=== PATIENT | male | born 1965 | race Caucasian/White ===

== ENCOUNTER 2017-06-04 10:49 | Emergency (ER) | payer MEDICAID ==
[~2017-06-04] VITALS: Ht 180.3 cm; Wt 113.0 kg
[2017-06-04 11:22] LABS: BASOPHILS # (AUTO) 0.1 X10'3 (0-0.2); BASOPHILS % (AUTO) 0.7 % (0-1); EOSINOPHILS # (AUTO) 0.2 X10'3 (0-0.9); EOSINOPHILS % (AUTO) 2.2 % (0-6); HEMATOCRIT 43.9 % (42.0-52.0); HEMOGLOBIN 15.6 g/dl (14.0-17.9); LYMPHOCYTES # (AUTO) 2.4 X10'3 (1.1-4.8); LYMPHOCYTES % (AUTO) 26.5 % (21-51); MEAN CORPUSCULAR HEMOGLOBIN 31.7 PG (27.0-31.0); MEAN CORPUSCULAR HGB CONC 35.4 % (33.0-36.5); MEAN CORPUSCULAR VOLUME 89.6 FL (78-98); MONOCYTES # (AUTO) 0.5 X10'3 (0-0.9); MONOCYTES % (AUTO) 5.3 % (2-12); NEUTROPHILS # (AUTO) 5.9 X10'3 (1.8-7.7); NEUTROPHILS % (AUTO) 65.3 % (42-75); PLATELET COUNT 320 X10'3 (140-440); RED CELL DISTRIBUTION WIDTH 14.3 % (11.5-14.5)
[2017-06-04 11:37] LABS: ANION GAP 10 (8-16); BLOOD UREA NITROGEN 14 MG/DL (7-18); BUN/CREATININE RATIO 12.6 (5.4-32.0); CHLORIDE 105 MMOL/L (99-107); CREATININE 1.11 MG/DL (0.60-1.10); GLUCOSE 126 MG/DL (70-104); SODIUM 140 MMOL/L (135-145); TOTAL CARBON DIOXIDE 25.5 MMOL/L (24-32)
[2017-06-04 11:38] LABS: ALANINE AMINOTRANSFERASE 40 U/L (12-78); ALBUMIN 3.8 G/DL (3.4-5.0); ALKALINE PHOSPHATASE 113 IU/L (46-116); ASPARTATE AMINO TRANSFERASE 21 U/L (10-37); BILIRUBIN,TOTAL 0.3 MG/DL (0.1-1.0); CALCIUM 8.9 MG/DL (8.5-10.1); TOTAL PROTEIN 7.7 G/DL (6.4-8.2); eGFR 70 ML/MIN
[2017-06-04 11:39] LABS: CLARITY,URINE CLEAR (Clear); COLOR,URINE YELLOW (Yellow); GLUCOSE, URINE NEGATIVE (Neg); KETONES,URINE NEGATIVE (Neg); LEUKOCYTE ESTERASE ,URINE NEGATIVE (Neg); NITRITES, URINE NEGATIVE (Neg); OCCULT BLOOD,URINE TRACE-INTACT (Neg); PH,URINE 5.5 (4.8-8.0); PROTEIN,URINE NEGATIVE (Neg); UA COLLECTION TYPE CLN CATCH MIDSTREAM; UROBILINOGEN,URINE 0.2 E.U/dL (0.2-1.0)
[2017-06-04] MEDS ORDERED: ketorolac trometh. 30mg/ml inj. IV ONE (11:45)
[2017-06-04] MEDS ORDERED: normal saline 1000ML IV soln IVB ONE (11:45)
[2017-06-04] MEDS ORDERED: ondansetron/PF 4mg/2ml inj IV ONE (11:45)
[2017-06-04 11:46] LABS: BACTERIA,URINE FEW /HPF (Neg); RBC,URINE 0-2 /HPF (0-2); SQUAMOUS EPITHELIAL CELL,UR FEW /LPF (FEW); WBC,URINE 0-4 /HPF (0-4)
[2017-06-04 11:54] LABS: LIPASE 242 U/L (73-393)
[2017-06-04] MEDS ORDERED: SUCR1ORA2 PO (12:51)
[2017-06-04] MEDS ORDERED: sucralfate 1gm/10ml UD suspension PO STA (13:04)
[2017-06-04] MEDS ORDERED: LIDOcaine Viscous 15ml cup PO ONE (13:05)
[2017-06-04] MEDS ORDERED: mag hydrox/Alum hydrox/simeth 30ml oral suspension PO ONE (13:05)
[2017-06-04 13:23] VITALS: BP 118/75
== END 2017-06-04 13:24 | disposition home or self-care (01) ==
LOC: ER 10:49
DX: R10.11 Right upper quadrant pain (principal); R11.0 Nausea; E78.00 Pure hypercholesterolemia, unspecified
CPT/HCPCS: 36415; 76700; 80053; 81001; 83690; 85025; 85610; 96361; 96374; 96375; 99285; J1885; J2405; J7030

== ENCOUNTER → 2018-02-12 | Emergency (ER) | payer MEDICAID ==
[~2018-02-12] VITALS: Ht 180.3 cm; Wt 106.0 kg
[~2018-02-12] MED LIST: SUCR1ORA2 PO
[2018-02-12 11:35] VITALS: BP 135/93
== END | disposition home or self-care (01) ==
LOC: ER 11:32
DX: Z02.79 Encounter for issue of other medical certificate (principal); G62.9 Polyneuropathy, unspecified; G89.29 Other chronic pain; E78.00 Pure hypercholesterolemia, unspecified
CPT/HCPCS: 99281

== ENCOUNTER 2018-11-25 06:46 | Emergency (ER) | payer MEDICAID ==
[~2018-11-25] VITALS: Ht 180.3 cm; Wt 113.6 kg
[2018-11-25 07:15] LABS: BASOPHILS # (AUTO) 0.1 X10'3 (0-0.2); BASOPHILS % (AUTO) 1.4 % (0-1); EOSINOPHILS # (AUTO) 0.1 X10'3 (0-0.9); EOSINOPHILS % (AUTO) 0.9 % (0-6); HEMATOCRIT 48.8 % (42.0-52.0); HEMOGLOBIN 16.5 g/dl (14.0-17.9); LYMPHOCYTES % (AUTO) 32.9 % (21-51); MEAN CORPUSCULAR HEMOGLOBIN 31.9 PG (27.0-31.0); MEAN CORPUSCULAR HGB CONC 33.7 g/dL (33.0-36.5); MEAN CORPUSCULAR VOLUME 94.5 FL (78-98); MEAN PLATELET VOLUME 7.7 FL (7.4-10.4); MONOCYTES # (AUTO) 0.6 X10'3 (0-0.9); MONOCYTES % (AUTO) 6.6 % (2-12); NEUTROPHILS # (AUTO) 5.3 X10'3 (1.8-7.7); NEUTROPHILS % (AUTO) 58.2 % (42-75); PLATELET COUNT 343 X10'3 (140-440); RED BLOOD COUNT 5.17 X10'6 (4.70-6.10); WHITE BLOOD COUNT 9.2 X10'3 (4.5-11.0)
[2018-11-25 07:30] LABS: ALANINE AMINOTRANSFERASE 43 U/L (12-78); ALKALINE PHOSPHATASE 116 IU/L (46-116); ANION GAP 12 (8-16); ASPARTATE AMINO TRANSFERASE 24 U/L (10-37); BILIRUBIN,TOTAL 0.3 MG/DL (0.1-1.0); BLOOD UREA NITROGEN 9 MG/DL (7-18); BUN/CREATININE RATIO 6.6 (5.4-32.0); CALCIUM 10.2 MG/DL (8.5-10.1); CHLORIDE 103 MMOL/L (99-107); CREATININE 1.37 MG/DL (0.60-1.10); GLUCOSE 132 MG/DL (70-104); LIPASE 261 U/L (73-393); POTASSIUM 3.5 MMOL/L (3.5-5.1); SODIUM 142 MMOL/L (135-145); TOTAL CARBON DIOXIDE 26.8 MMOL/L (24-32); TOTAL PROTEIN 8.1 G/DL (6.4-8.2); eGFR 55 ML/MIN
[2018-11-25] MEDS ORDERED: ZIPR80CA2 PO (07:35)
[2018-11-25] MEDS ORDERED: GABA600T13 PO (07:35)
[2018-11-25 07:44] LABS: CLARITY,URINE CLEAR (Clear); COLOR,URINE YELLOW (Yellow); GLUCOSE, URINE NEGATIVE (Neg); KETONES,URINE NEGATIVE (Neg); LEUKOCYTE ESTERASE ,URINE NEGATIVE (Neg); NITRITES, URINE NEGATIVE (Neg); OCCULT BLOOD,URINE NEGATIVE (Neg); PROTEIN,URINE NEGATIVE (Neg); UA COLLECTION TYPE VOIDED; UROBILINOGEN,URINE 0.2 E.U/dL (0.2-1.0)
[2018-11-25 07:51] LABS: URINE AMPHETAMINE SCREEN POSITIVE (Neg); URINE BARBITUATE SCREEN NEGATIVE (Neg); URINE BENZODIAZEPINES SCREEN NEGATIVE (Neg); URINE CANNABINOID SCREEN POSITIVE (Neg); URINE COCAINE SCREEN NEGATIVE (Neg); URINE METHADONE SCREEN NEGATIVE (Neg); URINE OPIATE SCREEN NEGATIVE (Neg); URINE PHENCYCLIDINE SCREEN NEGATIVE (Neg)
[2018-11-25] MEDS ORDERED: ziprasidone 20mg capsule PO ONE (08:34)
[2018-11-25] MEDS ORDERED: ziprasidone 20mg capsule PO SCH (08:34)
--- NOTE | 2018-11-25 08:52 | NUR ---
PT REQUESTING TO WALK TO BATHROOM, PT AMBULATORY TO BATHROOM WITH STEADY GAIT, LABS HAVE RESULTED AND TO BE REVIEWED BY DR GAFFNEY, PT GIVEN WARM BLANKETS
[2018-11-25] MEDS ORDERED: normal saline 1000ML IV soln IVB ONE (08:55)
[2018-11-25] MEDS ORDERED: ketorolac trometh. 30mg/ml inj. IV ONE (09:05)
[2018-11-25 10:32] VITALS: BP 125/92
== END 2018-11-25 10:25 | disposition home or self-care (01) ==
LOC: ER 06:47
DX: F41.9 Anxiety disorder, unspecified (principal); R10.9 Unspecified abdominal pain; R42 Dizziness and giddiness; E78.00 Pure hypercholesterolemia, unspecified; J44.9 Chronic obstructive pulmonary disease, unspecified; G89.29 Other chronic pain; F12.90 Cannabis use, unspecified, uncomplicated; F15.90 Other stimulant use, unspecified, uncomplicated; F17.200 Nicotine dependence, unspecified, uncomplicated; Z79.899 Other long term (current) drug therapy
CPT/HCPCS: 36415; 71045; 80053; 80305; 81003; 82948; 83690; 83880; 84484; 85025; 85610; 93005; 96361; 96374; 99284; J1885; J7030

== ENCOUNTER 2019-01-25 14:11 | Emergency (ER) | payer MEDICAID ==
[~2019-01-25] VITALS: Ht 180.3 cm; Wt 124.6 kg
[~2019-01-25 14:11] MED LIST changes: +GABA600T13 PO; -SUCR1ORA2 PO; +ZIPR80CA2 PO
[2019-01-25 15:10] LABS: BASOPHILS # (AUTO) 0.1 X10'3 (0-0.2); EOSINOPHILS # (AUTO) 0.2 X10'3 (0-0.9); EOSINOPHILS % (AUTO) 2.5 % (0-6); LYMPHOCYTES # (AUTO) 2.4 X10'3 (1.1-4.8); LYMPHOCYTES % (AUTO) 27.8 % (21-51); MEAN CORPUSCULAR HEMOGLOBIN 32.6 PG (27.0-31.0); MEAN CORPUSCULAR HGB CONC 34.1 g/dL (33.0-36.5); MEAN CORPUSCULAR VOLUME 95.5 FL (78-98); MEAN PLATELET VOLUME 7.5 FL (7.4-10.4); MONOCYTES # (AUTO) 0.7 X10'3 (0-0.9); MONOCYTES % (AUTO) 8.6 % (2-12); NEUTROPHILS # (AUTO) 5.1 X10'3 (1.8-7.7); NEUTROPHILS % (AUTO) 60.1 % (42-75); PLATELET COUNT 341 X10'3 (140-440); RED BLOOD COUNT 4.29 X10'6 (4.70-6.10); RED CELL DISTRIBUTION WIDTH 14.4 % (11.5-14.5); WHITE BLOOD COUNT 8.5 X10'3 (4.5-11.0)
[2019-01-25 15:22] LABS: ALANINE AMINOTRANSFERASE 55 U/L (12-78); ALBUMIN 3.5 G/DL (3.4-5.0); ALBUMIN/GLOBULIN RATIO 0.8 (1.1-1.5); ALKALINE PHOSPHATASE 117 IU/L (46-116); ANION GAP 9 (8-16); ASPARTATE AMINO TRANSFERASE 37 U/L (10-37); BILIRUBIN,TOTAL 0.2 MG/DL (0.1-1.0); BLOOD UREA NITROGEN 17 MG/DL (7-18); BUN/CREATININE RATIO 13.5 (5.4-32.0); CALCIUM 8.7 MG/DL (8.5-10.1); CHLORIDE 108 MMOL/L (99-107); CREATININE 1.26 MG/DL (0.60-1.10); GLUCOSE 119 MG/DL (70-104); PARTIAL THROMBOPLASTIN TIME 27 SECONDS (22-32); POTASSIUM 3.9 MMOL/L (3.5-5.1); SODIUM 144 MMOL/L (135-145); TOTAL CARBON DIOXIDE 26.6 MMOL/L (24-32); TOTAL PROTEIN 7.7 G/DL (6.4-8.2); eGFR 60 ML/MIN
[2019-01-25 16:08] VITALS: BP 136/77
[2019-01-25] MEDS ORDERED: PRED20TA PO (19:20)
== END 2019-01-25 16:23 | disposition left against medical advice (07) ==
LOC: ER 14:13
DX: R07.89 Other chest pain (principal); E78.00 Pure hypercholesterolemia, unspecified; J44.9 Chronic obstructive pulmonary disease, unspecified; G89.29 Other chronic pain; F20.9 Schizophrenia, unspecified; F12.90 Cannabis use, unspecified, uncomplicated; F15.90 Other stimulant use, unspecified, uncomplicated; Z88.8 Allergy status to other drugs, medicaments and biological substances; Z79.899 Other long term (current) drug therapy
CPT/HCPCS: 36415; 71045; 74176; 80053; 83880; 84484; 85025; 85610; 85730; 93005; 99284

== ENCOUNTER 2019-01-25 17:04 | Emergency (ER) | payer MEDICAID ==
[~2019-01-25] VITALS: Ht 177.8 cm; Wt 124.1 kg
[2019-01-25 18:58] LABS: D-DIMER 0.49 MG/L FEU (0-0.50)
[2019-01-25] MEDS ORDERED: PRED20TA PO (19:20)
[2019-01-25 19:30] VITALS: BP 130/85
== END 2019-01-25 19:30 | disposition home or self-care (01) ==
LOC: ER 17:04
DX: R06.02 Shortness of breath (principal); R10.12 Left upper quadrant pain; E78.00 Pure hypercholesterolemia, unspecified; J44.9 Chronic obstructive pulmonary disease, unspecified; G89.29 Other chronic pain; F20.9 Schizophrenia, unspecified; F12.90 Cannabis use, unspecified, uncomplicated; F15.90 Other stimulant use, unspecified, uncomplicated; Z88.8 Allergy status to other drugs, medicaments and biological substances; Z79.899 Other long term (current) drug therapy
CPT/HCPCS: 36415; 85379; 93005; 99284

== ENCOUNTER 2019-03-01 10:54 | Emergency (ER) | payer MEDICAID ==
[~2019-03-01] VITALS: Ht 177.8 cm; Wt 122.6 kg
[2019-03-01 10:58] VITALS: BP 131/92
[2019-03-01] MEDS ORDERED: AMOX-422 PO (12:50)
== END 2019-03-01 12:59 | disposition home or self-care (01) ==
LOC: ER 10:55
DX: S31.815A Open bite of right buttock, initial encounter (principal); E78.00 Pure hypercholesterolemia, unspecified; J44.9 Chronic obstructive pulmonary disease, unspecified; G89.29 Other chronic pain; G62.9 Polyneuropathy, unspecified; F12.90 Cannabis use, unspecified, uncomplicated; F15.90 Other stimulant use, unspecified, uncomplicated; Z88.8 Allergy status to other drugs, medicaments and biological substances; W54.0XXA Bitten by dog, initial encounter; Y93.89 Activity, other specified; Y92.89 Other specified places as the place of occurrence of the external cause; Y99.9 Unspecified external cause status
CPT/HCPCS: 99283

== ENCOUNTER 2019-06-04 22:56 | Emergency (ER) | payer MEDICAID ==
[~2019-06-04] VITALS: Ht 177.8 cm; Wt 109.0 kg
[2019-06-04 23:02] VITALS: BP 158/96
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
== END 2019-06-05 00:53 | disposition left against medical advice (07) ==
LOC: ER 22:57
DX: R45.1 Restlessness and agitation (principal); Z53.21 Procedure and treatment not carried out due to patient leaving prior to being seen by health care provider

== ENCOUNTER 2019-06-26 18:08 | Emergency (ER) | payer MEDICAID ==
[~2019-06-26] VITALS: Ht 180.3 cm; Wt 113.6 kg
[2019-06-26 18:15] VITALS: BP 134/56
[2019-06-26] MEDS ORDERED: PERM60CR19 TOP (19:09)
== END 2019-06-26 20:17 | disposition home or self-care (01) ==
LOC: ER 18:09
DX: R21 Rash and other nonspecific skin eruption (principal); E78.00 Pure hypercholesterolemia, unspecified; J44.9 Chronic obstructive pulmonary disease, unspecified; G89.29 Other chronic pain; F20.9 Schizophrenia, unspecified; F12.90 Cannabis use, unspecified, uncomplicated; F15.90 Other stimulant use, unspecified, uncomplicated; Z88.8 Allergy status to other drugs, medicaments and biological substances; Z79.899 Other long term (current) drug therapy
CPT/HCPCS: 99283

== ENCOUNTER 2019-07-14 17:10 | Emergency (ER) | payer MEDICAID ==
[~2019-07-14] VITALS: Ht 177.8 cm; Wt 113.6 kg
[2019-07-14 17:14] VITALS: BP 121/101
[2019-07-14] MEDS ORDERED: [UNRECOGNIZED DRUG - CODE] TOP (17:56)
[2019-07-14] MEDS ORDERED: DOXY100C2 PO (17:56)
[2019-07-14] MEDS ORDERED: PERM60CR19 TP (17:56)
--- NOTE | 2019-07-14 18:00 | NUR ---
Pt did not come inside the ED to the room. Pt was seen outside by provider and discharged from there. I did not have contact with the patient.
== END 2019-07-14 18:10 | disposition home or self-care (01) ==
LOC: ER 17:11
DX: R21 Rash and other nonspecific skin eruption (principal); L29.9 Pruritus, unspecified; E78.00 Pure hypercholesterolemia, unspecified; J44.9 Chronic obstructive pulmonary disease, unspecified; G89.29 Other chronic pain; F12.90 Cannabis use, unspecified, uncomplicated; F15.90 Other stimulant use, unspecified, uncomplicated; G62.9 Polyneuropathy, unspecified; F20.9 Schizophrenia, unspecified; Z88.8 Allergy status to other drugs, medicaments and biological substances
CPT/HCPCS: 99283

== ENCOUNTER 2019-07-29 13:51 | Emergency (ER) | payer MEDICAID ==
[~2019-07-29] VITALS: Ht 180.3 cm; Wt 110.0 kg
[~2019-07-29 13:51] MED LIST changes: +PERM60CR19 TP; +[UNRECOGNIZED DRUG - CODE] TOP
[2019-07-29 13:57] VITALS: BP 156/86
[2019-07-29] MEDS ORDERED: PERM60CR4 TOP (14:11)
== END 2019-07-29 14:15 | disposition home or self-care (01) ==
LOC: ER 13:52
DX: R21 Rash and other nonspecific skin eruption (principal); J44.9 Chronic obstructive pulmonary disease, unspecified; E78.00 Pure hypercholesterolemia, unspecified; G89.29 Other chronic pain; G62.9 Polyneuropathy, unspecified; F20.9 Schizophrenia, unspecified; F12.90 Cannabis use, unspecified, uncomplicated; F15.90 Other stimulant use, unspecified, uncomplicated; F17.210 Nicotine dependence, cigarettes, uncomplicated; Z76.0 Encounter for issue of repeat prescription; Z88.8 Allergy status to other drugs, medicaments and biological substances; Z79.899 Other long term (current) drug therapy
CPT/HCPCS: 99281; 99283

== ENCOUNTER 2019-08-11 19:24 | Emergency (ER) | payer MEDICAID ==
[~2019-08-11] VITALS: Ht 180.3 cm; Wt 113.6 kg
[~2019-08-11 19:24] MED LIST changes: +PERM60CR4 TOP
[2019-08-11] MEDS ORDERED: LORazepam 2 mg/ml vial IV ONE (19:35)
[2019-08-11] MEDS ORDERED: normal saline 1000ml 1,000 ML IV ONE (19:35)
[2019-08-11 19:54] LABS: BASOPHILS # (AUTO) 0.1 X10'3 (0-0.2); BASOPHILS % (AUTO) 1.1 % (0-1); EOSINOPHILS # (AUTO) 0.3 X10'3 (0-0.9); EOSINOPHILS % (AUTO) 2.9 % (0-6); HEMATOCRIT 44.8 % (42.0-52.0); LYMPHOCYTES # (AUTO) 2.6 X10'3 (1.1-4.8); LYMPHOCYTES % (AUTO) 25.6 % (21-51); MEAN CORPUSCULAR HEMOGLOBIN 31.4 PG (27.0-31.0); MEAN CORPUSCULAR HGB CONC 33.5 g/dL (33.0-36.5); MEAN CORPUSCULAR VOLUME 93.6 FL (78-98); MEAN PLATELET VOLUME 7.1 FL (7.4-10.4); MONOCYTES # (AUTO) 0.8 X10'3 (0-0.9); MONOCYTES % (AUTO) 8.2 % (2-12); NEUTROPHILS # (AUTO) 6.2 X10'3 (1.8-7.7); NEUTROPHILS % (AUTO) 62.2 % (42-75); PLATELET COUNT 374 X10'3 (140-440); RED BLOOD COUNT 4.78 X10'6 (4.70-6.10); RED CELL DISTRIBUTION WIDTH 14.5 % (11.5-14.5)
[2019-08-11 20:06] LABS: ALANINE AMINOTRANSFERASE 38 U/L (12-78); ALBUMIN 3.5 G/DL (3.4-5.0); ALBUMIN/GLOBULIN RATIO 0.9 (1.1-1.5); ALKALINE PHOSPHATASE 106 IU/L (46-116); ANION GAP 11 (8-16); ASPARTATE AMINO TRANSFERASE 26 U/L (10-37); BILIRUBIN,TOTAL 0.2 MG/DL (0.1-1.0); BLOOD UREA NITROGEN 15 MG/DL (7-18); BUN/CREATININE RATIO 12.2 (5.4-32.0); CALCIUM 8.8 MG/DL (8.5-10.1); CHLORIDE 107 MMOL/L (99-107); CREATININE 1.23 MG/DL (0.60-1.10); GLUCOSE 116 MG/DL (70-104); SODIUM 142 MMOL/L (135-145); TOTAL CARBON DIOXIDE 24.4 MMOL/L (24-32); TOTAL PROTEIN 7.6 G/DL (6.4-8.2); eGFR 62 ML/MIN
[2019-08-11 20:16] LABS: POTASSIUM 3.8 MMOL/L (3.5-5.1)
[2019-08-11 20:27] LABS: CLARITY,URINE SLIGHTLY CLOUDY (Clear); COLOR,URINE YELLOW (Yellow); GLUCOSE, URINE NEGATIVE (Neg); KETONES,URINE NEGATIVE (Neg); LEUKOCYTE ESTERASE ,URINE NEGATIVE (Neg); NITRITES, URINE POSITIVE (Neg); OCCULT BLOOD,URINE TRACE-INTACT (Neg); PH,URINE 5.5 (4.8-8.0); PROTEIN,URINE NEGATIVE (Neg); UROBILINOGEN,URINE 0.2 E.U/dL (0.2-1.0)
[2019-08-11 20:33] LABS: UA COLLECTION TYPE URINAL
[2019-08-11 20:35] LABS: BACTERIA,URINE 1+ /HPF (Neg); RBC,URINE NONE SEEN /HPF (0-2); SQUAMOUS EPITHELIAL CELL,UR FEW /LPF (FEW); WBC,URINE 50-100 /HPF (0-4)
[2019-08-11 20:36] LABS: MUCUS STRANDS MODERATE /LPF (Neg)
[2019-08-11] MEDS ORDERED: CEPH250T PO (20:41)
[2019-08-11] MEDS ORDERED: cephalexin 250mg capsule PO ONE (20:45)
[2019-08-11] MEDS ORDERED: LOPE2CAP PO (20:53)
[2019-08-11 21:13] VITALS: BP 148/96
== END 2019-08-11 21:16 | disposition home or self-care (01) ==
LOC: ER 19:25
DX: K42.9 Umbilical hernia without obstruction or gangrene (principal); R10.9 Unspecified abdominal pain; G62.9 Polyneuropathy, unspecified; E78.00 Pure hypercholesterolemia, unspecified; J44.9 Chronic obstructive pulmonary disease, unspecified; G89.29 Other chronic pain; F20.9 Schizophrenia, unspecified; F12.90 Cannabis use, unspecified, uncomplicated; F15.90 Other stimulant use, unspecified, uncomplicated; Z88.8 Allergy status to other drugs, medicaments and biological substances; Z79.2 Long term (current) use of antibiotics; Z79.899 Other long term (current) drug therapy
CPT/HCPCS: 36415; 80053; 81001; 85025; 87077; 87088; 87186; 96374; 99283; J2060; J7030

== ENCOUNTER 2019-08-15 18:21 | Emergency (ER) | payer MEDICAID ==
[~2019-08-15] VITALS: Ht 180.3 cm; Wt 113.6 kg
[~2019-08-15 18:21] MED LIST changes: +CEPH250T PO; +LOPE2CAP PO; -PERM60CR19 TP
--- NOTE | 2019-08-15 19:11 | NUR ---
PT REPORTS THAT HE CANNOT URINATE D/T HAVING MASSIVE AMOUNTS OF DIARRHEA; ED PROVIDER NOTIFIED AND INSTRUCTED FLUIDS BY MOUTH TO ENCOURAGE URINATION. PT WAS HERE A COUPLE DAYS AGO AND WAS FOUND TO HAVE A UTI; PT HAS NOT FILLED RX YET. MD PROVIDER UPDATED WITH THIS.
[2019-08-15 19:16] LABS: BASOPHILS # (AUTO) 0.1 X10'3 (0-0.2); BASOPHILS % (AUTO) 0.8 % (0-1); EOSINOPHILS # (AUTO) 0.3 X10'3 (0-0.9); EOSINOPHILS % (AUTO) 2.2 % (0-6); HEMATOCRIT 45.6 % (42.0-52.0); LYMPHOCYTES # (AUTO) 2.8 X10'3 (1.1-4.8); LYMPHOCYTES % (AUTO) 24.9 % (21-51); MEAN CORPUSCULAR HEMOGLOBIN 30.6 PG (27.0-31.0); MEAN CORPUSCULAR HGB CONC 32.9 g/dL (33.0-36.5); MEAN CORPUSCULAR VOLUME 92.8 FL (78-98); MONOCYTES # (AUTO) 0.5 X10'3 (0-0.9); MONOCYTES % (AUTO) 4.6 % (2-12); NEUTROPHILS # (AUTO) 7.7 X10'3 (1.8-7.7); NEUTROPHILS % (AUTO) 67.5 % (42-75); PLATELET COUNT 391 X10'3 (140-440); RED BLOOD COUNT 4.91 X10'6 (4.70-6.10); RED CELL DISTRIBUTION WIDTH 14.5 % (11.5-14.5); WHITE BLOOD COUNT 11.5 X10'3 (4.5-11.0)
[2019-08-15 19:27] LABS: ALANINE AMINOTRANSFERASE 47 U/L (12-78); ALKALINE PHOSPHATASE 123 IU/L (46-116); ANION GAP 11 (8-16); ASPARTATE AMINO TRANSFERASE 48 U/L (10-37); BILIRUBIN,TOTAL 0.4 MG/DL (0.1-1.0); BLOOD UREA NITROGEN 15 MG/DL (7-18); BUN/CREATININE RATIO 11.6 (5.4-32.0); CALCIUM 9.2 MG/DL (8.5-10.1); CHLORIDE 108 MMOL/L (99-107); CREATININE 1.29 MG/DL (0.60-1.10); GLUCOSE 100 MG/DL (70-104); LIPASE 243 U/L (73-393); POTASSIUM 4.2 MMOL/L (3.5-5.1); SODIUM 145 MMOL/L (135-145); TOTAL CARBON DIOXIDE 25.7 MMOL/L (24-32); TOTAL PROTEIN 8.1 G/DL (6.4-8.2); eGFR 58 ML/MIN
[2019-08-15 19:54] VITALS: BP 110/62
--- NOTE | 2019-08-15 19:56 | NUR ---
PER ED PROVIDER, JOSEPH CHAVIRA, WILL WAIT FOR URINE RESULTS BEFORE D/C.
[2019-08-15 20:01] LABS: CLARITY,URINE SLIGHTLY CLOUDY (Clear); COLOR,URINE YELLOW (Yellow); GLUCOSE, URINE NEGATIVE (Neg); KETONES,URINE NEGATIVE (Neg); LEUKOCYTE ESTERASE ,URINE NEGATIVE (Neg); NITRITES, URINE NEGATIVE (Neg); OCCULT BLOOD,URINE NEGATIVE (Neg); PROTEIN,URINE NEGATIVE (Neg); UROBILINOGEN,URINE 0.2 E.U/dL (0.2-1.0)
--- NOTE | 2019-08-15 20:01 | NUR ---
PER PT; HE "WILL NOT BE ABLE TO DRIVE HOME WITHOUT GABAPENTIN AND ZIPRASIDONE." WILL UPDATE ED PROVIDER.
[2019-08-15 20:15] LABS: UA COLLECTION TYPE CLN CATCH MIDSTREAM
[2019-08-15 20:19] LABS: BACTERIA,URINE NONE SEEN /HPF (Neg); RBC,URINE 0-2 /HPF (0-2); SQUAMOUS EPITHELIAL CELL,UR FEW /LPF (FEW); WBC,URINE NONE SEEN /HPF (0-4)
[2019-08-15 20:20] LABS: CAL OXALATE CRYSTALS 3+ /HPF (NEGATIVE); MUCUS STRANDS MODERATE /LPF (Neg)
[2019-08-15 21:31] LABS: OCCULT BLOOD STOOL NEGATIVE (Neg)
== END 2019-08-15 20:32 | disposition home or self-care (01) ==
LOC: ER 18:22
DX: R10.9 Unspecified abdominal pain (principal); E78.00 Pure hypercholesterolemia, unspecified; J44.9 Chronic obstructive pulmonary disease, unspecified; G89.29 Other chronic pain; F20.9 Schizophrenia, unspecified; F12.90 Cannabis use, unspecified, uncomplicated; F15.90 Other stimulant use, unspecified, uncomplicated; Z88.8 Allergy status to other drugs, medicaments and biological substances; Z79.899 Other long term (current) drug therapy
CPT/HCPCS: 36415; 80053; 81001; 82272; 83690; 85025; 99283

== ENCOUNTER 2019-08-30 08:43 | Emergency (ER) | payer MEDICAID ==
[~2019-08-30 08:43] MED LIST changes: -CEPH250T PO
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
== END 2019-08-30 08:49 | disposition left against medical advice (07) ==
LOC: ER 08:44
DX: R68.89 Other general symptoms and signs (principal); Z53.21 Procedure and treatment not carried out due to patient leaving prior to being seen by health care provider

== ENCOUNTER 2020-02-14 14:28 | Emergency (ER) | payer MEDICAID ==
[~2020-02-14] VITALS: Ht 177.8 cm; Wt 109.0 kg
[2020-02-14 14:44] VITALS: BP 148/86
[2020-02-14] MEDS ORDERED: MUPI22OI30 TOP (14:50)
== END 2020-02-14 15:08 | disposition home or self-care (01) ==
LOC: ER 14:28
DX: L01.09 Other impetigo (principal); E78.00 Pure hypercholesterolemia, unspecified; J44.9 Chronic obstructive pulmonary disease, unspecified; G89.29 Other chronic pain; F20.9 Schizophrenia, unspecified; F12.90 Cannabis use, unspecified, uncomplicated; F15.90 Other stimulant use, unspecified, uncomplicated; Z88.8 Allergy status to other drugs, medicaments and biological substances; Z79.2 Long term (current) use of antibiotics; Z79.899 Other long term (current) drug therapy
CPT/HCPCS: 99283

== ENCOUNTER 2020-03-01 22:29 | Emergency (ER) | payer MEDICAID ==
[~2020-03-01] VITALS: Ht 177.8 cm; Wt 100.0 kg
[2020-03-01 22:31] VITALS: BP 135/85
[2020-03-01] MEDS ORDERED: TRIA15CR61 TP (22:39)
--- NOTE | 2020-03-01 22:39 | NUR ---
pt confident he has scabies. I looked and I see nothing. I see pick monroy on his chin. He still is wondering. I looked very closely, I see no bugs. I see no track marking for any burrowing bugs. I can't explain to him why is feeling this way, but I know what it isn't. I encouraged him to see a livestock exhibitor.
== END 2020-03-01 22:47 | disposition home or self-care (01) ==
LOC: ER 22:30
DX: R21 Rash and other nonspecific skin eruption (principal); R20.2 Paresthesia of skin; L29.9 Pruritus, unspecified; E78.00 Pure hypercholesterolemia, unspecified; J44.9 Chronic obstructive pulmonary disease, unspecified; G89.29 Other chronic pain; M54.5 Low back pain; F41.9 Anxiety disorder, unspecified; F20.9 Schizophrenia, unspecified; F17.200 Nicotine dependence, unspecified, uncomplicated; F12.10 Cannabis abuse, uncomplicated; F15.10 Other stimulant abuse, uncomplicated; Z88.8 Allergy status to other drugs, medicaments and biological substances; Z79.899 Other long term (current) drug therapy
CPT/HCPCS: 99283

== ENCOUNTER 2020-08-16 08:02 | Emergency (ER) | payer MEDICAID ==
[~2020-08-16] VITALS: Ht 177.8 cm; Wt 108.4 kg
[2020-08-16 08:10] VITALS: BP 141/91
[2020-08-16] MEDS ORDERED: bacitracin 15gm ointment TP ONE (08:30)
[2020-08-16] MEDS ORDERED: PYRA144O PO (08:36)
== END 2020-08-16 08:58 | disposition home or self-care (01) ==
LOC: ER 08:03
DX: L23.9 Allergic contact dermatitis, unspecified cause (principal); E78.00 Pure hypercholesterolemia, unspecified; J44.9 Chronic obstructive pulmonary disease, unspecified; G89.29 Other chronic pain; F41.9 Anxiety disorder, unspecified; F20.9 Schizophrenia, unspecified; F12.90 Cannabis use, unspecified, uncomplicated; F15.90 Other stimulant use, unspecified, uncomplicated; Z72.89 Other problems related to lifestyle; Z88.8 Allergy status to other drugs, medicaments and biological substances; Z79.899 Other long term (current) drug therapy
CPT/HCPCS: 99282

== ENCOUNTER 2020-09-13 21:24 | Emergency (ER) | payer MEDICAID ==
[~2020-09-13] VITALS: Ht 180.3 cm; Wt 92.3 kg
[~2020-09-13 21:24] MED LIST changes: +PYRA144O PO
[2020-09-13 21:54] VITALS: BP 133/71
[2020-09-13] MEDS ORDERED: PERM60CR19 TOP (22:50)
== END 2020-09-13 23:05 | disposition home or self-care (01) ==
LOC: ER 21:25
DX: R21 Rash and other nonspecific skin eruption (principal); E78.00 Pure hypercholesterolemia, unspecified; J44.9 Chronic obstructive pulmonary disease, unspecified; G89.29 Other chronic pain; M54.9 Dorsalgia, unspecified; F12.10 Cannabis abuse, uncomplicated; F15.10 Other stimulant abuse, uncomplicated; Z79.899 Other long term (current) drug therapy
CPT/HCPCS: 99283

== ENCOUNTER 2020-10-22 11:51 | Emergency (ER) | payer MEDICAID ==
[~2020-10-22] VITALS: Ht 177.8 cm; Wt 103.3 kg
[2020-10-22 11:53] VITALS: BP 135/91
[2020-10-22] MEDS ORDERED: IBUP-1986 PO (12:03)
[2020-10-22] MEDS ORDERED: PERM60CR19 TOP (12:14)
== END 2020-10-22 12:15 | disposition home or self-care (01) ==
LOC: ER 11:52
DX: S39.012A Strain of muscle, fascia and tendon of lower back, initial encounter (principal); E78.00 Pure hypercholesterolemia, unspecified; J44.9 Chronic obstructive pulmonary disease, unspecified; G89.29 Other chronic pain; F41.9 Anxiety disorder, unspecified; F20.9 Schizophrenia, unspecified; F17.200 Nicotine dependence, unspecified, uncomplicated; F12.90 Cannabis use, unspecified, uncomplicated; F15.90 Other stimulant use, unspecified, uncomplicated; Z88.8 Allergy status to other drugs, medicaments and biological substances; Z79.899 Other long term (current) drug therapy; X58.XXXA Exposure to other specified factors, initial encounter; Y93.89 Activity, other specified; Y92.89 Other specified places as the place of occurrence of the external cause; Y99.8 Other external cause status
CPT/HCPCS: 99283

== ENCOUNTER 2020-11-01 09:32 | Emergency (ER) | payer MEDICAID ==
[~2020-11-01] VITALS: Ht 179.1 cm; Wt 109.1 kg
[~2020-11-01 09:32] MED LIST changes: +IBUP-1986 PO; +PERM60CR19 TOP
[2020-11-01 09:38] VITALS: BP 135/93
[2020-11-01] MEDS ORDERED: HYDR-3965 PO (14:00)
[2020-11-01] MEDS ORDERED: DIPH25CA83 PO (14:03)
== END 2020-11-01 10:42 | disposition left against medical advice (07) ==
LOC: ER 09:33
DX: K62.5 Hemorrhage of anus and rectum (principal); E78.00 Pure hypercholesterolemia, unspecified; J44.9 Chronic obstructive pulmonary disease, unspecified; G89.29 Other chronic pain; F41.9 Anxiety disorder, unspecified; F20.9 Schizophrenia, unspecified; F12.90 Cannabis use, unspecified, uncomplicated; F15.90 Other stimulant use, unspecified, uncomplicated; Z88.8 Allergy status to other drugs, medicaments and biological substances; Z79.899 Other long term (current) drug therapy
CPT/HCPCS: 99281

== ENCOUNTER 2020-11-01 11:30 | Emergency (ER) | payer MEDICAID ==
[~2020-11-01] VITALS: Ht 177.8 cm; Wt 109.1 kg
[2020-11-01 11:45] VITALS: BP 121/86
[2020-11-01 12:03] LABS: BASOPHILS # (AUTO) 0.1 X10'3 (0-0.2); EOSINOPHILS # (AUTO) 0.3 X10'3 (0-0.9); EOSINOPHILS % (AUTO) 3.2 % (0-6); HEMATOCRIT 41.1 % (42.0-52.0); HEMOGLOBIN 13.8 g/dl (14.0-17.9); LYMPHOCYTES # (AUTO) 2.5 X10'3 (1.1-4.8); LYMPHOCYTES % (AUTO) 29.2 % (21-51); MEAN CORPUSCULAR HEMOGLOBIN 31.4 PG (27.0-31.0); MEAN CORPUSCULAR HGB CONC 33.6 g/dL (33.0-36.5); MEAN CORPUSCULAR VOLUME 93.5 FL (78-98); MEAN PLATELET VOLUME 7.6 FL (7.4-10.4); MONOCYTES # (AUTO) 0.6 X10'3 (0-0.9); MONOCYTES % (AUTO) 7.5 % (2-12); NEUTROPHILS % (AUTO) 59.1 % (42-75); PLATELET COUNT 291 X10'3 (140-440); RED CELL DISTRIBUTION WIDTH 14.3 % (11.5-14.5); WHITE BLOOD COUNT 8.4 X10'3 (4.5-11.0)
[2020-11-01 12:34] LABS: ALANINE AMINOTRANSFERASE 32 U/L (12-78); ALBUMIN 3.4 G/DL (3.4-5.0); ALBUMIN/GLOBULIN RATIO 0.9 (1.1-1.5); ALKALINE PHOSPHATASE 116 IU/L (46-116); ANION GAP 8 (8-16); ASPARTATE AMINO TRANSFERASE 17 U/L (10-37); BILIRUBIN,TOTAL 0.2 MG/DL (0.1-1.0); BLOOD UREA NITROGEN 13 MG/DL (7-18); BUN/CREATININE RATIO 11.6 (5.4-32.0); CALCIUM 8.1 MG/DL (8.5-10.1); CHLORIDE 108 MMOL/L (99-107); CREATININE 1.12 MG/DL (0.60-1.10); ETHANOL < 0.010 GM/DL (0.0-0.010); GLUCOSE 100 MG/DL (70-104); MAGNESIUM 2.2 MG/DL (1.5-2.4); POTASSIUM 4.4 MMOL/L (3.5-5.1); SODIUM 143 MMOL/L (135-145); TOTAL CARBON DIOXIDE 27.3 MMOL/L (24-32); eGFR 68 ML/MIN
[2020-11-01] MEDS ORDERED: HYDROcodone/acetaminophen 10/325mg tab PO ONE (14:00)
[2020-11-01] MEDS ORDERED: HYDR-3965 PO (14:00)
[2020-11-01] MEDS ORDERED: DIPH25CA83 PO (14:03)
--- NOTE | 2020-11-01 14:11 | NUR ---
went to do assessment on pt as pt has d/c paperwork ,[facility] and checked the pt ,pt refused to get assessed for general assessment ,pt said my doctor already seen me and did assessment and he said i can go home judah i need my paperwork and want to go home ,jan mdarid aware .pt medicated with norco as per md orders for rgt foot pain 10/20 .
== END 2020-11-01 14:19 | disposition home or self-care (01) ==
LOC: ER 11:31
DX: K92.2 Gastrointestinal hemorrhage, unspecified (principal); M79.672 Pain in left foot; D62 Acute posthemorrhagic anemia; E78.00 Pure hypercholesterolemia, unspecified; J44.9 Chronic obstructive pulmonary disease, unspecified; G89.29 Other chronic pain; F41.9 Anxiety disorder, unspecified; F20.9 Schizophrenia, unspecified; F12.90 Cannabis use, unspecified, uncomplicated; F15.90 Other stimulant use, unspecified, uncomplicated; Z88.8 Allergy status to other drugs, medicaments and biological substances; Z79.899 Other long term (current) drug therapy
CPT/HCPCS: 36415; 80053; 80320; 83735; 85025; 99283

== ENCOUNTER 2020-11-09 21:34 | Emergency (ER) | payer MEDICAID ==
[~2020-11-09] VITALS: Ht 180.3 cm; Wt 109.1 kg
[~2020-11-09 21:34] MED LIST changes: +DIPH25CA83 PO; +HYDR-3965 PO
[2020-11-09 21:54] VITALS: BP 124/71
== END 2020-11-10 00:38 | disposition left against medical advice (07) ==
LOC: ER 21:36
DX: H92.02 Otalgia, left ear (principal); Z53.21 Procedure and treatment not carried out due to patient leaving prior to being seen by health care provider

== ENCOUNTER 2020-11-30 07:13 | Emergency (ER) | payer MEDICAID ==
[~2020-11-30] VITALS: Ht 177.8 cm; Wt 109.1 kg
[~2020-11-30 07:13] MED LIST changes: -PERM60CR19 TOP
[2020-11-30 07:21] VITALS: BP 113/77
[2020-11-30] MEDS ORDERED: PERM60CR4 TOP (08:48)
== END 2020-11-30 08:54 | disposition home or self-care (01) ==
LOC: ER 07:13
DX: L29.9 Pruritus, unspecified (principal); R21 Rash and other nonspecific skin eruption; E78.00 Pure hypercholesterolemia, unspecified; J44.9 Chronic obstructive pulmonary disease, unspecified; G89.29 Other chronic pain; F41.9 Anxiety disorder, unspecified; F20.9 Schizophrenia, unspecified; F12.90 Cannabis use, unspecified, uncomplicated; F15.90 Other stimulant use, unspecified, uncomplicated; Z88.8 Allergy status to other drugs, medicaments and biological substances; Z79.899 Other long term (current) drug therapy
CPT/HCPCS: 99282; 99283

== ENCOUNTER 2020-12-12 08:31 | Emergency (ER) | payer MEDICAID ==
[~2020-12-12] VITALS: Ht 177.8 cm; Wt 105.9 kg
[~2020-12-12 08:31] MED LIST changes: -HYDR-3965 PO
[2020-12-12 08:34] VITALS: BP 158/101
[2020-12-12] MEDS ORDERED: CYCL-1 PO (08:42)
[2020-12-12] MEDS ORDERED: IBUP-1984 PO (08:42)
[2020-12-12] MEDS ORDERED: ONDA4TAB6 PO (08:42)
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
== END 2020-12-12 08:47 | disposition home or self-care (01) ==
LOC: ER 08:32
DX: S16.1XXA Strain of muscle, fascia and tendon at neck level, initial encounter (principal); R11.0 Nausea; M54.2 Cervicalgia; R51.9 Headache, unspecified; R42 Dizziness and giddiness; E78.00 Pure hypercholesterolemia, unspecified; J44.9 Chronic obstructive pulmonary disease, unspecified; G89.29 Other chronic pain; F41.9 Anxiety disorder, unspecified; F20.9 Schizophrenia, unspecified; F12.90 Cannabis use, unspecified, uncomplicated; F15.90 Other stimulant use, unspecified, uncomplicated; Z88.8 Allergy status to other drugs, medicaments and biological substances; Z79.899 Other long term (current) drug therapy; Y08.89XA Assault by other specified means, initial encounter; Y93.89 Activity, other specified; Y92.89 Other specified places as the place of occurrence of the external cause; Y99.8 Other external cause status
CPT/HCPCS: 99283

== ENCOUNTER → 2021-01-28 | Emergency (ER) | payer MEDICAID ==
[~2021-01-28] VITALS: Ht 177.8 cm; Wt 109.1 kg
[~2021-01-28] MED LIST changes: +CYCL-1 PO; +NAPR-56 PO; +ONDA4TAB6 PO; +ketorolac trometh inj. 60 MG/2 ML VIAL IM ONE
[2021-01-28 06:30] VITALS: BP 128/95
== END | disposition home or self-care (01) ==
LOC: ER 06:25
DX: M79.601 Pain in right arm (principal); M25.511 Pain in right shoulder; M25.521 Pain in right elbow; M79.641 Pain in right hand; G62.9 Polyneuropathy, unspecified; E78.00 Pure hypercholesterolemia, unspecified; J44.9 Chronic obstructive pulmonary disease, unspecified; G89.29 Other chronic pain; F12.90 Cannabis use, unspecified, uncomplicated; F15.90 Other stimulant use, unspecified, uncomplicated; Z79.899 Other long term (current) drug therapy; Z88.8 Allergy status to other drugs, medicaments and biological substances
CPT/HCPCS: 96372; 99283; J1885

== ENCOUNTER 2021-03-10 21:57 | Emergency (ER) | payer MEDICAID ==
[~2021-03-10] VITALS: Ht 177.8 cm; Wt 109.1 kg
[~2021-03-10 21:57] MED LIST changes: -NAPR-56 PO; -ketorolac trometh inj. 60 MG/2 ML VIAL IM ONE
[2021-03-10 22:07] VITALS: BP 165/99
[2021-03-10] MEDS ORDERED: FLUC100T25 PO (22:34)
[2021-03-10] MEDS ORDERED: CLOT15CR10 TOP (22:34)
[2021-03-10] MEDS ORDERED: PERM60CR19 TP (22:34)
== END 2021-03-10 22:44 | disposition home or self-care (01) ==
LOC: ER 21:58
DX: B86 Scabies (principal); B35.3 Tinea pedis; E78.00 Pure hypercholesterolemia, unspecified; J44.9 Chronic obstructive pulmonary disease, unspecified; G62.9 Polyneuropathy, unspecified; G89.28 Other chronic postprocedural pain; F12.90 Cannabis use, unspecified, uncomplicated; F15.90 Other stimulant use, unspecified, uncomplicated; Z87.19 Personal history of other diseases of the digestive system; Z79.899 Other long term (current) drug therapy
CPT/HCPCS: 99283

== ENCOUNTER 2021-04-10 20:49 | Emergency (ER) | payer MEDICAID ==
[~2021-04-10] VITALS: Ht 177.8 cm; Wt 109.1 kg
[~2021-04-10 20:49] MED LIST changes: +CLOT15CR10 TOP; +PERM60CR19 TP
[2021-04-10 21:12] VITALS: BP 158/112
[2021-04-10] MEDS ORDERED: IVER3TAB2 PO (21:46)
[2021-04-10] MEDS ORDERED: PERM60CR19 TP (21:46)
== END 2021-04-10 21:52 | disposition home or self-care (01) ==
LOC: ER 20:50
DX: B86 Scabies (principal); E78.00 Pure hypercholesterolemia, unspecified; J44.9 Chronic obstructive pulmonary disease, unspecified; G89.29 Other chronic pain; F41.9 Anxiety disorder, unspecified; F20.9 Schizophrenia, unspecified; F12.90 Cannabis use, unspecified, uncomplicated; F15.90 Other stimulant use, unspecified, uncomplicated; Z88.8 Allergy status to other drugs, medicaments and biological substances; Z79.2 Long term (current) use of antibiotics; Z79.899 Other long term (current) drug therapy
CPT/HCPCS: 99283

== ENCOUNTER 2021-05-20 18:24 | Emergency (ER) | payer MEDICAID ==
[~2021-05-20] VITALS: Ht 180.3 cm; Wt 109.0 kg
[~2021-05-20 18:24] MED LIST changes: +IVER3TAB2 PO; -PERM60CR19 TP
[2021-05-20 19:13] VITALS: BP 122/83
[2021-05-21] MEDS ORDERED: PERM60CR19 TOP (09:31)
== END 2021-05-20 22:28 | disposition left against medical advice (07) ==
LOC: ER 18:24
DX: H92.01 Otalgia, right ear (principal); H92.02 Otalgia, left ear; R09.89 Other specified symptoms and signs involving the circulatory and respiratory systems; Z53.21 Procedure and treatment not carried out due to patient leaving prior to being seen by health care provider

== ENCOUNTER 2021-05-21 07:02 | Emergency (ER) | payer MEDICAID ==
[~2021-05-21] VITALS: Ht 180.3 cm; Wt 109.0 kg
[2021-05-21 07:11] VITALS: BP 146/92
[2021-05-21] MEDS ORDERED: PERM60CR19 TOP (09:31)
[2021-06-19] MEDS ORDERED: HYDR-3972 PO (14:26)
[2021-06-19] MEDS ORDERED: AMOX-117 PO (14:26)
== END 2021-05-21 10:02 | disposition home or self-care (01) ==
LOC: ER 07:03
DX: R20.2 Paresthesia of skin (principal); E78.00 Pure hypercholesterolemia, unspecified; J44.9 Chronic obstructive pulmonary disease, unspecified; G89.29 Other chronic pain; F41.9 Anxiety disorder, unspecified; F20.9 Schizophrenia, unspecified; F12.90 Cannabis use, unspecified, uncomplicated; F15.90 Other stimulant use, unspecified, uncomplicated; Z88.8 Allergy status to other drugs, medicaments and biological substances; Z79.2 Long term (current) use of antibiotics; Z79.899 Other long term (current) drug therapy
CPT/HCPCS: 99283

== ENCOUNTER 2021-06-16 09:25 | Emergency (ER) | payer MEDICAID ==
[~2021-06-16] VITALS: Ht 177.8 cm; Wt 109.1 kg
[~2021-06-16 09:25] MED LIST changes: +PERM60CR19 TOP
[2021-06-16 09:45] VITALS: BP 122/82
[2021-06-16] MEDS ORDERED: LIDOcaine 1.5% w/epinephrine 1:200,000 5ml ampul IJ ONE (09:45)
[2021-06-16] MEDS: bacitracin 15gm ointment TP ONE (09:57)
[2021-06-16] MEDS: LIDOcaine 1% W/epiNEPHrine 1:100,000 20ml vial IJ ONE (09:57)
[2021-06-16] MEDS: TETanus/Pertussis (Acell)/Diphther VAC/PF (Tdap-Adult) 0.5ml syringe IMVAC ONE (09:58)
[2021-06-16] MEDS: LIDOcaine 1% w/EPI 1:100,000 30ml vial (MDV) ONE (09:58)
[2021-06-19] MEDS ORDERED: AMOX-117 PO (14:26)
[2021-06-19] MEDS ORDERED: HYDR-3972 PO (14:26)
== END 2021-06-16 10:54 | disposition home or self-care (01) ==
LOC: ER 09:25
DX: S90.852A Superficial foreign body, left foot, initial encounter (principal); E78.00 Pure hypercholesterolemia, unspecified; J45.909 Unspecified asthma, uncomplicated; J44.9 Chronic obstructive pulmonary disease, unspecified; G89.29 Other chronic pain; M54.9 Dorsalgia, unspecified; F41.9 Anxiety disorder, unspecified; F12.10 Cannabis abuse, uncomplicated; F15.10 Other stimulant abuse, uncomplicated; F20.9 Schizophrenia, unspecified; Z88.5 Allergy status to narcotic agent; Z88.8 Allergy status to other drugs, medicaments and biological substances; Z79.899 Other long term (current) drug therapy; X58.XXXA Exposure to other specified factors, initial encounter; Y93.89 Activity, other specified; Y92.89 Other specified places as the place of occurrence of the external cause; Y99.8 Other external cause status
CPT/HCPCS: 10120; 73630; 90471; 90715; 99284; J3490

== ENCOUNTER 2021-08-04 16:37 | Emergency (ER) | payer MEDICAID ==
[~2021-08-04] VITALS: Ht 177.8 cm; Wt 109.1 kg
[~2021-08-04 16:37] MED LIST changes: -PERM60CR19 TOP
[2021-08-04 17:04] VITALS: BP 160/96
[2021-08-04] MEDS ORDERED: IBUP-1986 PO (18:57)
[2021-08-04] MEDS ORDERED: ketorolac trometh inj. 60 MG/2 ML VIAL IM ONE (19:00)
== END 2021-08-04 19:24 | disposition home or self-care (01) ==
LOC: ER 16:38
DX: M25.562 Pain in left knee (principal); E78.00 Pure hypercholesterolemia, unspecified; J44.9 Chronic obstructive pulmonary disease, unspecified; G89.29 Other chronic pain; M54.9 Dorsalgia, unspecified; F12.10 Cannabis abuse, uncomplicated; F15.10 Other stimulant abuse, uncomplicated; F41.9 Anxiety disorder, unspecified; F20.9 Schizophrenia, unspecified; X58.XXXA Exposure to other specified factors, initial encounter; Y93.89 Activity, other specified; Y92.89 Other specified places as the place of occurrence of the external cause; Y99.8 Other external cause status
CPT/HCPCS: 73564; 96372; 99283; J1885

== ENCOUNTER 2021-08-28 17:15 | Emergency (ER) | payer MEDICAID ==
[~2021-08-28] VITALS: Ht 177.8 cm; Wt 104.5 kg
[2021-08-28 17:33] VITALS: BP 127/85
[2021-08-28] MEDS ORDERED: PERM60CR19 TOP (17:41)
== END 2021-08-28 19:15 | disposition home or self-care (01) ==
LOC: ER 17:16
DX: T14.8XXA Other injury of unspecified body region, initial encounter (principal); F15.10 Other stimulant abuse, uncomplicated; E78.00 Pure hypercholesterolemia, unspecified; J44.9 Chronic obstructive pulmonary disease, unspecified; G89.29 Other chronic pain; M54.9 Dorsalgia, unspecified; F41.9 Anxiety disorder, unspecified; F31.9 Bipolar disorder, unspecified; F12.10 Cannabis abuse, uncomplicated; Z88.8 Allergy status to other drugs, medicaments and biological substances; Z88.5 Allergy status to narcotic agent; Z79.899 Other long term (current) drug therapy; W57.XXXA Bitten or stung by nonvenomous insect and other nonvenomous arthropods, initial encounter; Y93.89 Activity, other specified; Y92.89 Other specified places as the place of occurrence of the external cause; Y99.8 Other external cause status; J45.909 Unspecified asthma, uncomplicated
CPT/HCPCS: 99283

== ENCOUNTER 2021-10-06 10:44 | Emergency (ER) | payer MEDICAID ==
[~2021-10-06] VITALS: Ht 180.3 cm; Wt 109.1 kg
[2021-10-06 12:07] VITALS: BP 133/80
== END 2021-10-06 12:00 | disposition left against medical advice (07) ==
LOC: ER 10:44
DX: F45.8 Other somatoform disorders (principal); E78.00 Pure hypercholesterolemia, unspecified; J44.9 Chronic obstructive pulmonary disease, unspecified; G89.29 Other chronic pain; M54.9 Dorsalgia, unspecified; F12.10 Cannabis abuse, uncomplicated; F15.10 Other stimulant abuse, uncomplicated; Z79.899 Other long term (current) drug therapy; Z88.5 Allergy status to narcotic agent
CPT/HCPCS: 99281

== ENCOUNTER 2021-11-06 02:37 | Emergency (ER) | payer MEDICAID ==
[2021-11-06] MEDS ORDERED: CETI-90 PO (02:52)
[2021-11-06] MEDS ORDERED: famotidine 20mg tablet PO ONE (02:55)
[2021-11-06 03:04] VITALS: BP 145/86
== END 2021-11-06 03:10 | disposition home or self-care (01) ==
LOC: ER 02:38
DX: L29.9 Pruritus, unspecified (principal); J44.9 Chronic obstructive pulmonary disease, unspecified; G89.29 Other chronic pain; M54.50 Low back pain, unspecified; F17.200 Nicotine dependence, unspecified, uncomplicated; F12.90 Cannabis use, unspecified, uncomplicated; F15.20 Other stimulant dependence, uncomplicated; Z88.5 Allergy status to narcotic agent; Z88.8 Allergy status to other drugs, medicaments and biological substances
CPT/HCPCS: 99282

== ENCOUNTER 2021-11-17 06:12 | Emergency (ER) | payer MEDICAID ==
[~2021-11-17] VITALS: Ht 177.8 cm; Wt 100.0 kg
[~2021-11-17 06:12] MED LIST changes: +CETI-90 PO
[2021-11-17 06:22] VITALS: BP 131/109
[2021-11-17] MEDS ORDERED: DOXY100C43 PO (07:12)
[2021-11-17] MEDS ORDERED: PERM60CR4 TOP ×3 (07:12→07:32)
== END 2021-11-17 07:36 | disposition home or self-care (01) ==
LOC: ER 06:12
DX: S00.06XA Insect bite (nonvenomous) of scalp, initial encounter (principal); S10.96XA Insect bite of unspecified part of neck, initial encounter; W57.XXXA Bitten or stung by nonvenomous insect and other nonvenomous arthropods, initial encounter; Y93.89 Activity, other specified; Y92.89 Other specified places as the place of occurrence of the external cause; Y99.8 Other external cause status
CPT/HCPCS: 99283

== ENCOUNTER 2021-12-22 17:59 | Emergency (ER) | payer MEDICAID ==
[~2021-12-22] VITALS: Ht 180.3 cm; Wt 100.0 kg
[2021-12-22 18:06] VITALS: BP 115/70
[2021-12-22] MEDS ORDERED: PERM60CR4 TOP ×2 (20:05→20:06)
[2021-12-22] MEDS ORDERED: HYDR28CR14 TOP ×2 (20:05→20:07)
== END 2021-12-22 20:19 | disposition home or self-care (01) ==
LOC: VAS 18:00
DX: R21 Rash and other nonspecific skin eruption (principal); R19.7 Diarrhea, unspecified; E78.00 Pure hypercholesterolemia, unspecified; J44.9 Chronic obstructive pulmonary disease, unspecified; G89.29 Other chronic pain; F41.9 Anxiety disorder, unspecified; F20.9 Schizophrenia, unspecified; F12.90 Cannabis use, unspecified, uncomplicated; F15.90 Other stimulant use, unspecified, uncomplicated; Z88.8 Allergy status to other drugs, medicaments and biological substances; Z79.899 Other long term (current) drug therapy
CPT/HCPCS: 99281; 99283

== ENCOUNTER 2022-02-25 23:05 | Emergency (ER) | payer MEDICAID ==
[~2022-02-25] VITALS: Ht 177.8 cm; Wt 100.0 kg
[~2022-02-25 23:05] MED LIST changes: +HYDR28CR14 TOP
[2022-02-25 23:11] VITALS: BP 135/97
== END 2022-02-26 02:15 | disposition left against medical advice (07) ==
LOC: ER 23:07
DX: R05.9 Cough, unspecified (principal); Z53.21 Procedure and treatment not carried out due to patient leaving prior to being seen by health care provider; R19.7 Diarrhea, unspecified

== ENCOUNTER 2022-02-26 03:50 | Emergency (ER) | payer MEDICAID ==
[~2022-02-26] VITALS: Ht 177.8 cm; Wt 100.0 kg
[2022-02-26 04:12] VITALS: BP 156/101
== END 2022-02-26 11:46 | disposition left against medical advice (07) ==
LOC: ER 03:52
DX: R51.9 Headache, unspecified (principal); Z53.21 Procedure and treatment not carried out due to patient leaving prior to being seen by health care provider
CPT/HCPCS: 93005

== ENCOUNTER 2023-01-29 13:34 | Emergency (ER) | payer MEDICAID ==
[~2023-01-29] VITALS: Ht 180.3 cm; Wt 89.4 kg
[2023-01-29 13:38] VITALS: BP 159/108; PULSE 112; RESP 16; TEMP 98.6; O2SAT 98
== END 2023-01-29 14:27 | disposition left against medical advice (07) ==
LOC: ER 13:34
DX: J02.9 Acute pharyngitis, unspecified (principal); Z53.21 Procedure and treatment not carried out due to patient leaving prior to being seen by health care provider
CPT/HCPCS: 99281

== ENCOUNTER 2023-04-04 16:13 | Emergency (ER) | payer OTHER, MEDICAID ==
[~2023-04-04] VITALS: Ht 177.8 cm; Wt 96.9 kg
[2023-04-04 16:22] VITALS: BP 154/101; PULSE 110; TEMP 98.3; O2SAT 97
[2023-04-04] MEDS ORDERED: ketorolac trometh inj. 60 MG/2 ML VIAL IM ONE (19:30)
[2023-04-04] MEDS ORDERED: IBUP-1984 PO (19:33)
[2023-04-04] MEDS ORDERED: CEPH500C2 PO (19:33)
[2023-04-04] MEDS ORDERED: SULF1TAB48 PO (19:33)
[2023-04-04 19:56] VITALS: RESP 16
== END 2023-04-04 20:21 | disposition home or self-care (01) ==
LOC: ER 16:14
DX: S70.02XA Contusion of left hip, initial encounter (principal); S70.01XA Contusion of right hip, initial encounter; L02.416 Cutaneous abscess of left lower limb; G89.29 Other chronic pain; E78.00 Pure hypercholesterolemia, unspecified; J44.9 Chronic obstructive pulmonary disease, unspecified; F12.90 Cannabis use, unspecified, uncomplicated; F15.90 Other stimulant use, unspecified, uncomplicated; Z88.8 Allergy status to other drugs, medicaments and biological substances; Z79.2 Long term (current) use of antibiotics; Z79.899 Other long term (current) drug therapy; X58.XXXA Exposure to other specified factors, initial encounter; Y93.89 Activity, other specified; Y92.89 Other specified places as the place of occurrence of the external cause; Y99.8 Other external cause status
CPT/HCPCS: 96372; 99283; J1885; 99284

== ENCOUNTER 2024-05-03 01:52 | Emergency (ER) | payer MEDICAID ==
[~2024-05-03] VITALS: Ht 177.8 cm; Wt 102.3 kg
[~2024-05-03 01:52] MED LIST changes: +GABA-1405 PO; -GABA600T13 PO
[2024-05-03 02:10] VITALS: BP 131/94; PULSE 87; RESP 16; O2SAT 95
[2024-05-03 02:26] VITALS: TEMP 98
== END 2024-05-03 02:27 ==
LOC: ER 01:53
DX: E78.00 Pure hypercholesterolemia, unspecified; F20.9 Schizophrenia, unspecified; J44.9 Chronic obstructive pulmonary disease, unspecified; F41.9 Anxiety disorder, unspecified; G62.9 Polyneuropathy, unspecified; F12.90 Cannabis use, unspecified, uncomplicated; F15.90 Other stimulant use, unspecified, uncomplicated; Z88.5 Allergy status to narcotic agent; Z88.8 Allergy status to other drugs, medicaments and biological substances; V89.2XXA Person injured in unspecified motor-vehicle accident, traffic, initial encounter; Y93.89 Activity, other specified; Y92.410 Unspecified street and highway as the place of occurrence of the external cause; Y99.8 Other external cause status
CPT/HCPCS: 99283